=== PATIENT | male | born 1935 | race Caucasian/White ===

== ENCOUNTER 2017-09-05 20:51 | Emergency (ER) | payer OTHER, BC ==
[~2017-09-05] VITALS: Ht 172.7 cm; Wt 61.0 kg
[2017-09-05 20:54] VITALS: TEMP 36.5; Ht 172.7 cm; Wt 61.0 kg
[2017-09-05] MEDS ORDERED: FOLI1TAB7 PO (21:26)
[2017-09-05] MEDS ORDERED: LOSA1TAB PO (21:26)
[2017-09-05] MEDS ORDERED: DORZ2SOL OPL (21:26)
[2017-09-05] MEDS ORDERED: METH2.5T PO (21:26)
[2017-09-05] MEDS ORDERED: ZOLP5TAB PO (21:26)
[2017-09-05] MEDS ORDERED: SIMV10TA2 PO (21:26)
--- NOTE | 2017-09-05 22:06 | DIAGNOSTIC IMAGING REPORT ---
HEAD WITHOUT CONTRAST (CT) CLINICAL HISTORY: 82 years-old Male with head injury. Acute head injury TECHNIQUE: Multiple axial CT images of the head were obtained without contrast. A dose lowering technique was utilized adhering to the principles of ALARA. CT DOSE: 537.48 mGy.cm COMPARISON: None. FINDINGS: No acute intracranial hemorrhage, midline shift, intracranial mass, hydrocephalus, territorial ischemia or abnormal extra-axial collection. Moderate brain atrophy with mild chronic microvascular ischemic changes. Focal area of increased attenuation involving the left lentiform nucleus, 4 mm suggests Senescent calcifications. The calvarium is intact. The paranasal sinuses, mastoid air cells, and middle ear cavities are clear. There is curvilinear increased attenuation involving the posterior medial aspect of the left globe, 2.0 x 0.5 cm as seen on image 5 series 3 which covers the expected location of the optic disc and fovea. There is evidence of prior bilateral cataract repair. IMPRESSION: 1. 4 mm focus of increased attenuation involving the medial left lentiform nucleus suggest senescent calcification with tiny intraparenchymal hemorrhage felt to be much less likely. Correlate with any prior imaging. 2. Curvilinear area of increased attenuation involving the posterior medial left lobe measuring up to 2.0 cm which covers the optic disc suggests possible retinal hemorrhage/detachment or choroidal lesion. Correlation with examination findings and ophthalmology consultation recommended. The above report was generated using voice recognition software. It may contain grammatical, syntax or spelling errors. Electronically signed by: Kris Keith M.D. 09/05/2017 10:05 PM Dictated Date/Time: 09/05/2017 9:52 PM
--- NOTE | 2017-09-05 22:07 | EMERGENCY ROOM VISIT NOTE ---
History First contact with patient: 20:59 Chief Complaint: LACERATION/CUT (SUT/DERMABOND) Stated Complaint: POSSIBL CONCUSSION Nursing Triage Summary: hit head on trunk lid that was up History of Present Illness The patient is a 82 year old male who presents to the Emergency Room with complaints of a laceration to the left forehead. The patient states that he was getting out of the car and the trunk automatically opened, striking him in the forehead. He states he developed a laceration above the left eye. He is concerned about a possible concussion or brain injury. He denies any headache, nausea/vomiting, blurred vision, slurred speech, dizziness, numbness or weakness. 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 There was no loss of consciousness at the time of the injury. Review of Systems A complete 10 point review of systems was reviewed with the patient with pertinent positives and negatives as per history of present illness. All else were negative. Social History Smoking Status: Never Smoker Current/Historical Medications Scheduled Dorzolamide Hcl (Trusopt), 1 DROP OPL BID Folic Acid (Folvite), 1 MG PO DAILY Losartan Potassium (Cozaar), 25 MG PO DAILY Methotrexate (Methotrexate), 4 TAB PO 2XWK Simvastatin (Zocor), 10 MG PO QPM Zolpidem Tartrate (Ambien), 0.5 TAB PO HS Physical Exam Vital Signs Date Time Temp Pulse Resp B/P (MAP) Pulse Ox O2 Delivery O2 Flow Rate FiO2 09/05/17 22:37 72 20 151/72 99 09/05/17 20:54 36.5 62 18 163/73 100 Room Air Physical Exam VITALS: Vitals are noted on the nurse's note and reviewed by myself. Vital signs stable. GENERAL: This is an 82-year-old male, in no acute distress, nondiaphoretic, well -developed well-nourished. SKIN: There is a 2 cm flap like, non-gaping laceration to the left forehead just superior to the eyebrow. There is an additional 1.5 cm laceration superior to this which is also superficial. No active bleeding from either laceration. HEAD: Normocephalic atraumatic. EARS: External auditory canals clear, tympanic membranes pearly trent without erythema or effusion bilaterally. No hemotympanum. EYES: Left pupil is nonreactive to light. Right pupil is round and reactive to light. Extraocular movements intact. NECK: Supple without nuchal rigidity. Cervical spine is nontender. HEART: Regular rate and rhythm without murmurs gallops or rubs. LUNGS: Clear to auscultation bilaterally without wheezes, rales or rhonchi. MUSCULOSKELETAL: Strength 5/5 throughout. NEURO: Patient was alert and oriented to person place and time. Normal sensation to light and sharp touch. No focal neurological deficits. Medical Decision & Procedures ER Provider Diagnostic Interpretation: HEAD WITHOUT CONTRAST (CT) FINDINGS: No acute intracranial hemorrhage, midline shift, intracranial mass, hydrocephalus, territorial ischemia or abnormal extra-axial collection. Moderate brain atrophy with mild chronic microvascular ischemic changes. Focal area of increased attenuation involving the left lentiform nucleus, 4 mm suggests Senescent calcifications. The calvarium is intact. The paranasal sinuses, mastoid air cells, and middle ear cavities are clear. There is curvilinear increased attenuation involving the posterior medial aspect of the left globe, 2.0 x 0.5 cm as seen on image 5 series 3 which covers the expected location of the optic disc and fovea. There is evidence of prior bilateral cataract repair. IMPRESSION: 1. 4 mm focus of increased attenuation involving the medial left lentiform nucleus suggest senescent calcification with tiny intraparenchymal hemorrhage felt to be much less likely. Correlate with any prior imaging. 2. Curvilinear area of increased attenuation involving the posterior medial left lobe measuring up to 2.0 cm which covers the optic disc suggests possible retinal hemorrhage/detachment or choroidal lesion. Correlation with examination findings and ophthalmology consultation recommended. Medical Decision Differential diagnosis includes concussion, contusion, skull fracture, intracranial hemorrhage, among others. The patient was evaluated as above. Laceration repair was performed using Dermabond with good wound closure. Wound care instructions were discussed with the patient and . A CT scan was performed and showed a questionable calcification versus tiny bleed. The patient is asymptomatic at this time and is neurologically intact. He has had extensive due to history of ocular melanoma and I feel this likely to be old. I did discuss this with the radiologist, who does state this appears to be old, although an acute bleed is impossible to completely rule out. Clinically, the patient does not appear to have an intracranial hemorrhage. We did attempt to obtain records from his hospital at home, [place], however were unable to obtain these. The patient was anxious to be discharged and I do feel is reasonable that he is discharged with close follow-up. He understands that he will need to return immediately if he develops a headache, vomiting, numbness, weakness, slurred speech or any other new/concerning symptoms. He and his verbalized understanding of my assessment and treatment plan and the patient was discharged home in good condition. The patient was independently evaluated by Dr. Lujan, ED attending physician, who agreed with my assessment and treatment plan. Head Trauma GCS Score: 15 Medication Reconcilliation Current Medication List: was personally reviewed by me Blood Pressure Screening Patient's blood pressure: Elevated blood pressure Blood pressure disposition: Elevated BP felt to be situational Impression Primary Impression: Facial laceration Additional Impression: Closed head injury Departure Information Dispostion Home / Self-Care Condition GOOD Referrals No Doctor, Assigned (PCP) Patient Instructions [facility] Additional Instructions There was a finding in your CT scan which appears to be an old calcification. You should follow-up with your primary care provider first thing on Thursday to discuss this. Allow the Dermabond (skin glue) to fall off on its own in the next 2-3 days. You may shower, but do not scrub at the wound. Do not apply any ointments or lotions to the glue. Tylenol as needed for pain. As with any emergency Department visit, you should follow-up with your primary care provider for further evaluation and a recheck. Return to the nearest emergency department with any headaches, vomiting, dizziness, confusion, blurred vision, slurred speech or any other new/ concerning symptoms. Problem Qualifiers Primary Impression: Facial laceration Encounter type: initial encounter Qualified Codes: S01.81XA - Laceration without foreign body of other part of head, initial encounter Additional Impression: Closed head injury Encounter type: initial encounter Qualified Codes: S09.90XA - Unspecified injury of head, initial encounter
--- NOTE | 2017-09-05 22:25 | EMERGENCY ROOM VISIT NOTE ---
ED Visit Note First contact with patient: 20:59 Patient was seen by our PA/WOOD PANEL INSPECTOR. I was involved in the patient's care and did evaluate the patient myself. I was involved in the care throughout the ER stay. Patient presents with head trauma. The trauma was minimal but he suffered a small laceration. The laceration was repaired. Brain CT shows some changes from his melanoma, the radiologist feels these changes are old. The patient has no complaints of a headache, he is not on any anticoagulants. He is being discharged home. If worsening, he can return.
[2017-09-05 22:37] VITALS: BP 151/72; PULSE 72; O2SAT 99
== END 2017-09-05 22:38 | disposition home or self-care (01) ==
LOC: C.EDB 20:53 → C.EDD 22:38
DX: S01.81XA Laceration without foreign body of other part of head, initial encounter (principal); W22.8XXA Striking against or struck by other objects, initial encounter; Z85.840 Personal history of malignant neoplasm of eye